=== PATIENT | female | born 1995 | race American Indian/Alaskan Native ===

== ENCOUNTER 2018-09-02 12:00 | Emergency (ER) | payer OTHER ==
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
[2018-09-02] MEDS ORDERED: NORCO 5/325 PO STA (14:39)
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
[2018-09-02 17:03] VITALS: BP 120/71
== END 2018-09-02 17:03 | disposition home or self-care (01) ==
LOC: ED 12:00
DX: M62.830 Muscle spasm of back (principal); V89.2XXA Person injured in unspecified motor-vehicle accident, traffic, initial encounter; Y93.89 Activity, other specified; Y92.488 Other paved roadways as the place of occurrence of the external cause; Y99.8 Other external cause status
CPT/HCPCS: 72040; 72100; 99283